=== PATIENT | female | born 1970 ===

== ENCOUNTER 2023-02-22 12:13 | Outpatient (CLI) | payer BC, SELFPAY ==
[2023-02-22 12:48] LABS: Basophils Percent Auto 0.3 % (0.2-1.2); Hematocrit 29.5 % (37.0-47.0); Hemoglobin 9.1 g/dL (12.0-15.0); Immature Granulocyte Absolute 0.02 K/mm3 (0.00-0.031); Immature Granulocyte Percent A 0.3 % (0-0.5); Lymphocytes Absolute Auto 0.87 K/mm3 (0.9-3.2); Lymphocytes Percent Auto 14.7 % (18.3-44.2); Mean Corpuscular HGB Conc 30.8 g/dl (32-36); Mean Corpuscular Hemoglobin 27.2 pg (26-34); Mean Corpuscular Volume 88.1 fl (80-100); Mean Platelet Volume 10.2 fl (7.4-10.4); Monocytes Absolute Auto 0.4 K/mm3 (0.1-0.6); Monocytes Percent Auto 7.4 % (2.6-8.5); Neutrophils Absolute Auto 4.6 K/mm3 (1.3-6.7); Neutrophils Percent Auto 77.3 % (45.5-73.1); Platelet Count Result 439 k/mm3 (150-375); Red Blood Count 3.35 M/mm3 (4.2-5.4); Red Cell Distribution Width 14.8 % (11.5-14.5); White Blood Count 5.9 K/mm3 (4.5-10.0)
[2023-02-22 12:59] LABS: Iron 80 ug/dL (37-170)
[2023-02-22 13:08] LABS: Percent Iron Saturation 19 % (20-50)
[2023-02-22 13:31] LABS: Thyroid Stimulating Hormone Reflex 0.845 uIU/mL (0.465-4.68)
[2023-02-26 16:21] LABS: Anti Mullerian Hormone,Female 0.08 ng/mL
[2023-02-27 05:48] LABS: FSH 17.3 mIU/mL (***); Progesterone 0.4 ng/mL (***)
[2023-02-28 22:41] LABS: Estradiol, Ultrasensitive 110 pg/mL
== END 2023-02-22 12:14 | disposition home or self-care (01) ==
PROVIDERS: Visit Provider Obstetrics & Gynecology
DX: D64.9 Anemia, unspecified (principal); N93.9 Abnormal uterine and vaginal bleeding, unspecified; Z98.890 Other specified postprocedural states
CPT/HCPCS: 36415; 82670; 83001; 83540; 83550; 84144; 84443; 85025